=== PATIENT | female | born 1995 | race Asian ===

== ENCOUNTER 2017-10-20 21:57 | Emergency (ER) | payer OTHER ==
[~2017-10-20] VITALS: Ht 157.5 cm; Wt 56.2 kg
[2017-10-20 22:15] VITALS: BP 136/96
[2017-10-20] MEDS ORDERED: Fleet's Enema 133ml RECTAL ONE (22:15)
--- NOTE | 2017-10-20 22:17 | Emergency Room Report ---
History of Present Illness General Chief Complaint: Abdominal Pain Source: Patient, EMS Present Illness HPI Is a 22-year-old female with no past medical history the patient presents with chief complaint abdominal pain and constipation. She has no bowel movement for the last 5 days. She try [id number] medication without any success. Has not tried any enema. She has a nurse to defecate but can't because of the pain. Most her pain is to the rectal area. No fever chills but no nausea no vomiting. No diarrhea. Allergies: Coded Allergies: No Known Allergies (Unverified , 10/20/17) Patient History Past Medical History: none, see triage record, old chart reviewed Past Surgical History: none Pertinent Family History: none Social History: Denies: smoking Last Menstrual Period: 3 weeks ago Now: No Immunizations: other Reviewed Nursing Documentation: PMH: Agreed, PSxH: Agreed Nursing Documentation-PMH Past Medical History: No Stated History Review of Systems Eye: Denies: eye pain, blurred vision ENT: Denies: ear pain, nose congestion, throat swelling Respiratory: Denies: cough, shortness of breath Cardiovascular: Denies: chest pain, palpitations Gastrointestinal: Reports: abdominal pain, constipation, Denies: diarrhea, nausea, vomiting Musculoskeletal: Denies: back pain, joint pain Skin: Denies: rash Neurological: Denies: headache, numbness Endocrine: Denies: increased thirst, increased urine Hematologic/Lymphatic: Denies: easy bruising All Other Systems: negative except mentioned in HPI Physical Exam Vital Signs Date Time Temp Pulse Resp B/P (MAP) Pulse Ox O2 Delivery O2 Flow Rate FiO2 10/20/17 22:01 97.5 109 20 140/104 99 Room Air vitals unremarkable Sp02 EP Interpretation: reviewed, normal General Appearance: well appearing, no apparent distress, alert Head: normocephalic, atraumatic Eyes: bilateral eye PERRL, bilateral eye EOMI ENT: hearing grossly normal, normal pharynx Neck: full range of motion, supple, no meningismus Respiratory: chest non-tender, lungs clear, normal breath sounds Cardiovascular #1: regular rate, rhythm, no murmur Gastrointestinal: normal bowel sounds, non tender, no mass, no organomegaly, no bruit, non-distended, other - Abdominal fullness but noguarding or re Rectal: other - Small hard stool in the vault Musculoskeletal: back normal, gait/station normal, normal range of motion Psychiatric: mood/affect normal Skin: warm/dry Medical Decision Making Diagnostic Impression: Primary Impression: Constipation Qualified Codes: K59.00 - Constipation, unspecified ER Course Patient presents with abdominal pain/fullness with constipation. I disimpacted small hard stool. I gave her an enema and she had a large amount of bowel movement. Still feel constipated. No evidence of any obstruction. Abdomen exam is benign. We'll discharge home. Last Vital Signs Date Time Temp Pulse Resp B/P (MAP) Pulse Ox O2 Delivery O2 Flow Rate FiO2 10/20/17 22:01 97.5 109 20 140/104 99 Room Air Status: improved Disposition: HOME, SELF-CARE Condition: Stable Scripts Lactulose (LACTULOSE*) 20 Gm/30 Ml Solution 30 ML ORAL BID, #240 ML 0 Refills Prov: RIVER [place] M.D. 10/20/17 Additional Instructions: Followup your DrCindy in 7 days. May take Fleet enema as outpatient. Return if symptom worsen. RIVER [place] M.D. Oct 20, 2017 22:17
[2017-10-20] MEDS ORDERED: LACTULOSE20 GM/301 ORAL (23:10)
[2017-10-20 23:50] VITALS: BP 136/96
== END 2017-10-20 23:50 | disposition home or self-care (01) ==
LOC: EDBD 21:57 → EMR 22:11
DX: K59.00 Constipation, unspecified (principal); R10.9 Unspecified abdominal pain
CPT/HCPCS: 99283